=== PATIENT | female | born 1950 | race Caucasian/White ===

== ENCOUNTER → 2020-06-28 | Outpatient (CLI) | payer MEDICARE, OTHER | LOC: KOH-I 15:56 | DX: M25.511 Pain in right shoulder (principal); M25.562 Pain in left knee; M17.11 Unilateral primary osteoarthritis, right knee | CPT/HCPCS: 73030; 73564 ==

== ENCOUNTER → 2021-01-14 | Outpatient (CLI) | payer MEDICARE, OTHER | LOC: EMI 10:05 | DX: M54.30 Sciatica, unspecified side (principal); M47.816 Spondylosis without myelopathy or radiculopathy, lumbar region; M48.061 Spinal stenosis, lumbar region without neurogenic claudication | CPT/HCPCS: 72148 ==

== ENCOUNTER → 2021-03-14 | Outpatient (CLI) | payer MEDICARE, OTHER | LOC: MRI 10:35 | DX: M54.50 Low back pain, unspecified (principal); M79.604 Pain in right leg; G89.29 Other chronic pain; M51.26 Other intervertebral disc displacement, lumbar region; M48.061 Spinal stenosis, lumbar region without neurogenic claudication; R93.7 Abnormal findings on diagnostic imaging of other parts of musculoskeletal system | CPT/HCPCS: 36415; 72158; 73501; 82565; 84520; A9577 ==

== ENCOUNTER 2021-08-15 12:00 | Observation (INO) | payer MEDICARE, OTHER ==
[~2021-08-15] VITALS: Ht 160 cm; Wt 72.6 kg
[2021-08-15 12:45] LABS: HEMOGLOBIN 15.1 gm/dl (12.3-15.3); RED BLOOD COUNT 4.79 M/UL (4.00-5.10); WHITE BLOOD COUNT 10.9 K/UL (4.5-11.0)
[2021-08-15 13:31] LABS: BUN/CREATININE RATIO 29 (0-10)
[2021-08-15] MEDS ORDERED: AMPHETAMINE SAL30 MG PO (16:01)
[2021-08-15] MEDS ORDERED: ZETIA10 MG PO (16:02)
[2021-08-15] MEDS ORDERED: PROTONIX40 MG PO (16:03)
[2021-08-15] MEDS ORDERED: ATORVASTATIN CA40 MG PO (16:05)
[2021-08-15] MEDS ORDERED: EXEMESTANE25 MG PO (16:06)
[2021-08-15] MEDS ORDERED: POTASSIUM CHLO10 MEQ PO (16:07)
[2021-08-15] MEDS ORDERED: HYDROCHLOROTHIA25 MG PO (16:08)
[2021-08-15] MEDS ORDERED: ESCITALOPRAM OX10 MG PO (16:09)
[2021-08-15] MEDS ORDERED: IBUPROFEN600 MG PO (16:10)
[2021-08-16] MEDS ORDERED: CARVEDILOL3.125 MG PO (16:57)
[2021-08-16] MEDS ORDERED: AMLODIPINE BESY10 MG PO (16:57)
[2021-08-16] MEDS ORDERED: ASPIRIN EC81 MG PO (17:10)
[2021-08-16] MEDS ORDERED: NITROGLYCERIN0.4 MG SL (17:11)
[2021-08-16] MEDS ORDERED: HYDRALAZINE HCL25 MG PO (17:11)
[2021-08-16] MEDS ORDERED: COREG6.25 MG PO (17:51)
[2021-08-16] MEDS ORDERED: POTASSIUM CHLO10 MEQ PO (17:53)
[2021-08-16] MEDS ORDERED: NORVASC5 MG PO (17:53)
[2021-08-16] MEDS ORDERED: MAGNESIUM400 M2 PO (18:55)
== END 2021-08-16 19:30 | disposition home or self-care (01) ==
LOC: ER1 12:00 → PROG CARE 15:27 → CDU 15:27 → PROG CARE 17:00 → MED SURG 4 08-16 08:10
PROVIDERS: Nurse Practitioner; ADMIT Internal Medicine
DX: I16.9 Hypertensive crisis, unspecified (principal); R77.8 Other specified abnormalities of plasma proteins; R07.89 Other chest pain; E78.5 Hyperlipidemia, unspecified; K21.9 Gastro-esophageal reflux disease without esophagitis; R51.9 Headache, unspecified; R11.0 Nausea; I47.1 Supraventricular tachycardia; R00.2 Palpitations; Z98.890 Other specified postprocedural states; Z90.49 Acquired absence of other specified parts of digestive tract; Z90.710 Acquired absence of both cervix and uterus; Z72.89 Other problems related to lifestyle; Z82.49 Family history of ischemic heart disease and other diseases of the circulatory system; Z20.822 Contact with and (suspected) exposure to COVID-19
CPT/HCPCS: ECHO; 0240U; 71045; 80053; 81001; 82550; 82553; 83735; 84484; 85025; 93005; 93270; 93306; 96372; 96374; 96375; 96376; 99285; G0378; J0360; J1650

== ENCOUNTER → 2021-09-19 | Outpatient (CLI) | payer MEDICARE, OTHER ==
[~2021-09-19] MED LIST: AMLODIPINE BESY10 MG PO; AMPHETAMINE SAL30 MG PO; ASPIRIN EC81 MG PO; ATORVASTATIN CA40 MG PO; CARVEDILOL3.125 MG PO; COREG6.25 MG PO; ESCITALOPRAM OX10 MG PO; EXEMESTANE25 MG PO; HYDRALAZINE HCL25 MG PO; HYDROCHLOROTHIA25 MG PO; IBUPROFEN600 MG PO; MAGNESIUM400 M2 PO; NITROGLYCERIN0.4 MG SL; NORVASC5 MG PO; POTASSIUM CHLO10 MEQ PO; PROTONIX40 MG PO; ZETIA10 MG PO
== END ==
LOC: EXRD 14:21
DX: M25.561 Pain in right knee (principal); M25.562 Pain in left knee; M17.0 Bilateral primary osteoarthritis of knee; M11.262 Other chondrocalcinosis, left knee; M11.261 Other chondrocalcinosis, right knee
CPT/HCPCS: 73564